=== PATIENT | female | born 1985 | race Hispanic/Latino ===

== ENCOUNTER 2018-10-05 02:27 | Emergency (ER) | payer OTHER, BC ==
[2018-10-05 03:15] VITALS: RESP 16; O2SAT 98
[2018-10-05] MEDS ORDERED: Bacitracin 500 Units/gm Oint Foilpak UD TOP STA (04:25)
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
[2018-10-05 05:40] VITALS: BP 118/77; PULSE 70; TEMP 98.8
== END 2018-10-05 05:36 | disposition home or self-care (01) ==
LOC: H.ER 02:27
DX: M25.561 Pain in right knee (principal); S00.412A Abrasion of left ear, initial encounter; S01.312A Laceration without foreign body of left ear, initial encounter; S10.93XA Contusion of unspecified part of neck, initial encounter; V43.62XA Car passenger injured in collision with other type car in traffic accident, initial encounter; Y92.410 Unspecified street and highway as the place of occurrence of the external cause; Z88.0 Allergy status to penicillin
CPT/HCPCS: 81025; 96372; 99285; J1885